=== PATIENT | female | born 1995 | race Hispanic/Latino ===

== ENCOUNTER 2019-05-22 15:18 | Emergency (ER) | payer OTHER ==
[2019-05-22 16:42] VITALS: BP 116/58; TEMP 97.9; O2SAT 98
== END 2019-05-22 16:36 | disposition home or self-care (01) ==
LOC: ER 15:18
DX: O26.893 Other specified pregnancy related conditions, third trimester (principal); Z3A.38 38 weeks gestation of pregnancy
CPT/HCPCS: 99283; J7512

== ENCOUNTER 2019-05-24 02:31 | Inpatient (IN) | payer OTHER ==
[2019-05-24] MEDS ORDERED: ZOLPIDEM TARTRATE 5 MG TABLET PO PRN (04:47)
[2019-05-24] MEDS ORDERED: MEPERIDINE HCL 25 MG/0.5 ML IV PRN (04:47)
[2019-05-24] MEDS ORDERED: METHYLERGONOVINE 0.2MG/ML AMP IM PRN (04:47)
[2019-05-24] MEDS ORDERED: MIDAZOLAM HCL 2 MG/2 ML INJ IV PRN (04:47)
[2019-05-24] MEDS ORDERED: PROMETHAZINE INJ 25 MG/ML AMP IM PRN (04:47)
[2019-05-24] MEDS ORDERED: DIPHENHYDRAMINE 25 MG TAB/CAP PO PRN ×2 (04:47→11:33)
[2019-05-24] MEDS ORDERED: CARBOPROST TROME 250 MCG/ML IM PRN (04:47)
[2019-05-24] MEDS ORDERED: Ringers Lactate 1,000 ML IV PRN (04:47)
[2019-05-24] MEDS ORDERED: BUTORPHANOL 1 MG/ML INJ IV PRN (04:47)
[2019-05-24] MEDS ORDERED: OXYTOCIN/LR 20 UNIT/1,000 ML BAG IV SCH ×3 (05:00→12:00)
[2019-05-24] MEDS ORDERED: Ringers Lactate 1,000 ML IV SCH (05:00)
[2019-05-24 05:10] LABS: Absolute Lymphocytes (CBC) 2.8 K/uL (0.7-4.9); Basophils % 0.2 % (0-1.3); Hematocrit 33.7 % (36.0-45.0); Lymphocytes % 14.4 % (15.3-44.8); MPV 9.7 fL (7.6-11.3); RBC Red Blood Cell Count 4.05 M/uL (3.86-4.86)
[2019-05-24 05:13] LABS: Urine Appearance TURBID; Urine Bilirubin NEGATIVE (NEG); Urine Blood NEGATIVE (NEG); Urine Color YELLOW; Urine Glucose NEGATIVE (NEG); Urine Protein NEGATIVE (NEG)
[2019-05-24] MEDS ORDERED: OXYTOCIN/LR 20 UNIT/1,000 ML BAG IV ONE (05:16)
[2019-05-24 05:34] VITALS: BMI 39.0
[2019-05-24 06:00] LABS: Urine Microscopic Reflex ORDER UMIC
[2019-05-24 06:13] LABS: Urine Bacteria 20-50 /HPF (<20); Urine Culture Reflex Order NOT NEEDED; Urine Mucus 1+ /HPF (NONE SEEN); Urine RBC <5 /HPF (NONE SEEN)
--- NOTE | 2019-05-24 08:54 | PREOPHP ---
Date of Admission: 05/24/2019 24-year-old 2, para 1, 39 weeks. Rh positive. Immune to Rubella. Negative beta strep scree n. For induction 3 cm, 50% to 60% effaced, vertex, well applied, -1 station. Rupture of membranes, clear fluid. FHTs normal and reactive. Patient states that she will probably go natural childbirth, may be requesting IV analgesics. She knows, of course, she has the option of changing her mind if s he so desires. Full labor talk given. Anticipate delivery sometime later today. SUSIE/LAZARO Voice ID: [id number]
[2019-05-24] MEDS ORDERED: ROPIVACAINE HCL 100 ML IV PRN (09:57)
[2019-05-24] MEDS ORDERED: ROPIVACAINE HCL 0.2% 20ML AMP IV ONE (09:59)
[2019-05-24] MEDS ORDERED: FENTANYL CITR 100 MCG/2 ML IV ONE (10:00)
[2019-05-24] MEDS ORDERED: LIDOCAINE 1% 20 ML MDV ONE (10:39)
[2019-05-24] MEDS ORDERED: DOCUSATE NA/SENNA CONC 1 TAB PO PRN (11:33)
[2019-05-24] MEDS ORDERED: BISACODYL 10 MG RECTAL SUPP PR PRN (11:33)
[2019-05-24] MEDS ORDERED: Oxycodone HCl/Acetaminophen 1 TAB TAB PO PRN ×2 (11:33)
[2019-05-24] MEDS ORDERED: ACETAMINOPHEN 500 MG TAB PO PRN (11:33)
[2019-05-24] MEDS ORDERED: IBUPROFEN 200 MG TAB PO PRN (11:33)
[2019-05-24] MEDS ORDERED: CEFAZOLIN/SWI 2gm 2 GM/20 ML SYR ONE (12:15)
--- NOTE | 2019-05-24 12:24 | OP ---
Surgeon: Noel Roberto MD 24-year-old 2, para 1, 39 weeks, 3 to 3.5 cm this morning. Rupture of membranes, clear fluid . Patient went to a very active labor pattern. Requested epidural but by that time she requested it she was [address] Jimenez gave her a spinal block with fentanyl. Second stage of about 20 minutes. Spontaneous vaginal delivery of an estimated 7-pound plus male . Mild shoulder dystocia. Fl exion of the legs effected delivery. Patient had a right labial hematoma, local infiltration plus th e spinal block was sufficient to put in about 6 [id number] stitches along the labial margins inc luding the labia minora and majora to completely evacuate the hematoma. The placenta was retained for 26 minutes and then was delivered, Javier, mild uterine hypotonus, 0.2 mg of Methergine and massage. Estimated blood loss at this 400 to 450 cc. Patient is very stable. We will give her 1 g of Ancef because of the hematoma, watch her very carefully. IV will be kept for 6 hours. Ice pack will stay on for 2 hours and will monitor her carefully, at this point though quite stable. Rh positive, immu ne to Rubella. Negative beta strep screen. Final Diagnoses: Intrauterine gestation, 39 weeks. Spinal block anesthesia. Right labial hematoma, mild uterine hypotonus. NBC/MODL Voice ID: [id number] Report ID: [id number]
[2019-05-24] MEDS: METHYLERGONOVINE 0.2 MG TAB PO PRN ×3 (15:30→23:30)
[2019-05-24] MEDS ORDERED: Ringers Lactate 3,000 ML IV ONE (15:58)
[2019-05-24] MEDS: IBUPROFEN 600 MG TAB PO PRN (17:30)
[2019-05-24 21:22] LABS: RPR (Rapid Plasma Reagin) NON-REACT (NON-REACT)
[2019-05-25] MEDS: IBUPROFEN 600 MG TAB PO PRN ×2 (00:10→13:05)
[2019-05-25] MEDS: METHYLERGONOVINE 0.2 MG TAB PO PRN ×2 (07:30→11:40)
--- NOTE | 2019-05-25 08:34 | DS ---
Hospital Course: Etelvina Chamberlain is a 24-year-old 2, para 1, 39 weeks delivered a 7-pound pl us male infant. Apgars 9 and 9. Mild shoulder dystocia. Right labia minora hematoma sutured with f [id number] stitches, 2-0 chromic. Spinal block with fentanyl for analgesia. Javier delivery of the placenta. Uterus mildly hypotonic, 400 to 450 cc blood loss. Methergine IM followed by Methergi ne p.o. 4 doses. Ancef 1 time for prophylaxis. afebrile, ambulating, and voiding. Lochi a is normal. Will be dismissed later today to report back to my office next week for followup. I wi sh to look the labia to make sure that the hematoma is resolving. Full instructions given. Tdap off ered. No post spinal block problems. Final Diagnoses: Term intrauterine at 39 weeks. Vaginal delivery. Spinal block anesthesi a. Right labial hematoma. SUSIE/KAITYL Voice ID: [id number] Report ID: [id number]
[2019-05-25 13:02] VITALS: BP 91/60; TEMP 96.9
[2019-05-26 20:35] LABS: HBsAG Nonreactive (Nonreactive)
== END 2019-05-25 13:55 | disposition home or self-care (01) | DRG 768 ==
LOC: 2ND-WC 04:21
PROVIDERS: ADMIT Specialist; ATTEND Specialist
PROC: 10E0XZZ Delivery of Products of Conception, External Approach (ICD-10-PCS; principal; 2019-05-24)
PROC: 0UQMXZZ Repair Vulva, External Approach (ICD-10-PCS; 2019-05-24)
PROC: 10907ZC Drainage of Amniotic Fluid, Therapeutic from Products of Conception, Via Natural or Artificial Opening (ICD-10-PCS; 2019-05-24)
PROC: 0U9MXZZ Drainage of Vulva, External Approach (ICD-10-PCS; 2019-05-24)
DX: O71.7 Obstetric hematoma of pelvis (principal); Z37.0 Single live birth; O62.2 Other uterine inertia; O66.0 Obstructed labor due to shoulder dystocia; Z3A.39 39 weeks gestation of pregnancy
CPT/HCPCS: 36415; 81003; 81015; 85025; 86592; 86850; 86900; 86901; 87340; 99218; 99283; J0595; J0690; J2175; J2210; J2550; J2590; J2795; J3010; J7120; J7512